=== PATIENT | female | born 1945 | race Caucasian/White ===

== ENCOUNTER 2019-09-22 01:53 | Inpatient (IN) | payer MEDICARE ==
[2019-09-22] VITALS (10 sets, daily range): BP systolic 88–135; BP diastolic 50–73
[~2019-09-22] VITALS: Ht 149.9 cm; Wt 69.1 kg
[~2019-09-22 01:53] MED LIST: ALBUTEROL2.5 MG/0.5 INH; ASPIR LOW81 MG PO; BENEFIBER1 CTB PO; CORDROL20 MG PO; DEEP SEA 45 ML45 ML NAS; DOXYCYCLINE HY100 M5 PO; DOXYCYCLINE100 MG PO; FLUTICASON0.05 MG/AC NAS; HYDROCHLOROTH12.5 M1 PO; HYDROCODONE BIT1 T11 PO; HYZAAR 50/12.5M1 TAB PO; LOSARTAN POTASS1 TA5 PO; MONTELUKAST SOD10 MG PO; MUCINEX ER600 MG PO; OMNICEF300 MG PO; OXYGEN NAS; PLAVIX75 M1 PO; PREDNICOT10 MG PO; PREDNISONE10 MG PO; PREDNISONE20 M1 PO; PROVENTIL0.09 MG/A1 INH; SINGULAIR10 MG PO; SPIRIVA18 MCG IH; SPIRIVA18 MCG PO; SYMBICORT1 AE1 INH; VIBRAMYCIN100 MG PO; XANAX0.25 MG PO; XANAX1 MG PO; ZOCOR10 MG PO
[2019-09-22 02:17] LABS: BASO # 0.1 10*3/uL (0.0-0.1); BASO % 0.4 % (0.0-1.0); EOS # 0.2 10*3/uL (0.0-0.4); EOS % 1.4 % (1.0-4.0); HEMATOCRIT 40.1 % (37.0-47.0); LYMPH # 1.1 10*3/uL (1.3-4.4); LYMPH % 8.4 % (27.0-41.0); MEAN CELL VOLUME 102.6 fl (81.0-99.0); MEAN CORPUSCULAR HGB 33.2 pg (27.0-31.0); MEAN CORPUSCULAR HGB CONC 32.4 g/dl (33.0-37.0); MEAN PLATELET VOLUME 9.2 fl (9.6-12.3); MONO # 0.6 10*3/uL (0.1-1.0); MONO % 4.7 % (3.0-9.0); NEUT # 11.1 10*3/uL (2.3-7.9); NEUT % 84.7 % (47.0-73.0); PLATELET COUNT AUTOMATED 281 10*3/uL (130-400); RED BLOOD COUNT 3.91 10*6/uL (4.10-5.10); RED CELL DISTRI WIDTH 12.4 % (0-14.5); WHITE BLOOD COUNT 13.1 10*3/uL (4.8-10.8)
[2019-09-22 02:27] LABS: ACT PARTIAL THROMBO TIME 27.6 SECONDS (20.0-32.1); INTERNATIONAL NORM RATIO 0.9 (2.0-3.5)
[2019-09-22 02:35] LABS: ALBUMIN 3.6 gm/dl (3.1-4.5); ALKALINE PHOSPHATASE 88 U/L (45-117); BUN 14 mg/dl (7-24); CHLORIDE 105 mmol/L (98-107); CREATININE 0.89 mg/dL (0.55-1.02); POTASSIUM 4.2 mmol/L (3.5-5.1); SGOT/AST 12 IU/L (3-35); SGPT/ALT 17 U/L (12-78); SODIUM 141 mmol/L (136-145); TOTAL PROTEIN 6.9 gm/dL (6.4-8.2)
[2019-09-22 02:37] LABS: TROPONIN I < 0.015 ng/ml (<0.045)
--- NOTE | 2019-09-22 03:35 | NUR ---
PT DENIES ANY OPEN WOUNDS OR SORES AT THIS TIME.
--- NOTE | 2019-09-22 04:20 | NUR ---
A 74, admitted to , under the services of JOHNNIE Archibald DO with a diagnosis of ACUTE EXACERBATION OF CHRONIC OBSTRUCTIVE. Chief complaint is SHORTNESS OF BREATH. Patient arrived via stretcher from ER. Monitor applied. Initial assessment completed. Vital signs taken and recorded. JOHNNIE ARCHIBALD DO notified of admission to the unit. Orders received. See assessment for past medical history, medications and allergies. Patient and/or family oriented to unit. [address] visitation policy reviewed. Clothing/patient valuable form completed. PULSE OX 95% ON 2L KEMAL MOBLEY
--- NOTE | 2019-09-22 05:12 | NUR ---
PATIENT NOT ABLE TO VERIFY HOME MEDS AT THIS TIME SHE IS NOT ABLE TO RECALL WHAT THEY ARE. PATIENT STATED HER IS GOING TO BRING HER MEDICATION LIST IN SOMETIME TODAY THEREFORE MED REC IS NOT COMPLETED AT THIS TIME.
--- NOTE | 2019-09-22 08:25 | NUR ---
IV BOLUS INITIATED AT THIS TIME PER ORDER.
[2019-09-22 08:57] LABS: HEMATOCRIT 37.8 % (37.0-47.0); HEMOGLOBIN 12.4 g/dl (12.0-16.0); MEAN CELL VOLUME 102.4 fl (81.0-99.0); MEAN CORPUSCULAR HGB 33.6 pg (27.0-31.0); MEAN CORPUSCULAR HGB CONC 32.8 g/dl (33.0-37.0); MEAN PLATELET VOLUME 9.3 fl (9.6-12.3); PLATELET COUNT AUTOMATED 270 10*3/uL (130-400); RED BLOOD COUNT 3.69 10*6/uL (4.10-5.10); RED CELL DISTRI WIDTH 12.3 % (0-14.5)
--- NOTE | 2019-09-22 09:03 | NUR ---
CHIEF EXECUTIVE OR MANAGING DIRECTOR spoke with the patient about DPOA/LW papers. Patient stated that she was given some from her doctors office. Patient stated that they confused her a little bit when she was reading them. CHIEF EXECUTIVE OR MANAGING DIRECTOR answered all questions the patient asked. CHIEF EXECUTIVE OR MANAGING DIRECTOR provided the patient with a new set of DPOA/HC papers, and explained if she had any additional question to have this CHIEF EXECUTIVE OR MANAGING DIRECTOR notified and CHIEF EXECUTIVE OR MANAGING DIRECTOR will assist her with answering them. Patient stated she would like to take the documents home and have them filled out there. CHIEF EXECUTIVE OR MANAGING DIRECTOR explained she could have a notary or two witnesses sign them. Patient understood. -Haylie ESPAÑA
[2019-09-22 09:13] LABS: ALBUMIN 3.4 gm/dl (3.1-4.5); ALKALINE PHOSPHATASE 85 U/L (45-117); BUN 13 mg/dl (7-24); CHLORIDE 105 mmol/L (98-107); CREATININE 0.97 mg/dL (0.55-1.02); POTASSIUM 4.1 mmol/L (3.5-5.1); SGOT/AST 15 IU/L (3-35); SGPT/ALT 15 U/L (12-78); SODIUM 141 mmol/L (136-145); TOTAL PROTEIN 6.7 gm/dL (6.4-8.2)
[2019-09-22 09:15] LABS: TOTAL CELLS COUNTED 100 #CELLS
[2019-09-22 09:16] LABS: PLATELET SUFFICIENCY NORMAL (NORMAL)
--- NOTE | 2019-09-22 09:49 | NUR ---
ORTHO'S PERFORMED PER ORDER. LAYING BP 101/64. HR 103. SITTING BP 99/57. HR 107. STANDING BP 103/59. HR 107. PT ASYMPTOMATIC. WILL CONTINUE TO MONITOR. IV BOLUS COMPLETE.
[2019-09-22] MEDS ORDERED: SYMB160 INH (12:15)
[2019-09-22] MEDS ORDERED: LOSARTAN-HCTZ1 EACH PO (12:16)
[2019-09-22] MEDS ORDERED: ZESTORETIC 20-1 EACH PO (12:17)
[2019-09-22] MEDS ORDERED: SPIRIVA -- 3018 MCG INH (12:17)
[2019-09-22] MEDS ORDERED: ASPIRIN ADULT L81 M2 PO (12:18)
[2019-09-22] MEDS ORDERED: FLONASE ALLERG9.9 ML NAS (12:22)
--- NOTE | 2019-09-22 12:23 | NUR ---
MED REC UPDATED PER POLICY.
--- NOTE | 2019-09-22 14:55 | NUR ---
FLUTTER VALVE DONE WITH PT NPC NOTED PT INSTRUCTED TO USE Q1 HOUR DURING DAY
--- NOTE | 2019-09-22 15:00 | NUR ---
PATIENT RESTING QUIETLY IN BED. NO DISTRESS NOTED. RESPIRATIONS EASY, REGULAR AT REST. FORBES PER PT. 02 IN USE VIA 2LNC. WILL CONTINUE TO MONITOR.
--- NOTE | 2019-09-22 16:16 | NUR ---
Nursing screen received and chart reviewed. Patient admitted with COPD and SOB. If patient should have a decline in ADLs from baseline, then refer to Occupational Therapy. Thank you. Estela Sosa OTR/l
[2019-09-23] VITALS: BP 121/66
--- NOTE | 2019-09-23 03:51 | NUR ---
24 HR chart check completed.
[2019-09-23 06:36] LABS: BASO % 0.1 % (0.0-1.0); HEMOGLOBIN 11.2 g/dl (12.0-16.0); LYMPH # 0.9 10*3/uL (1.3-4.4); LYMPH % 7.5 % (27.0-41.0); MEAN CELL VOLUME 105.4 fl (81.0-99.0); MEAN CORPUSCULAR HGB 33.7 pg (27.0-31.0); MEAN PLATELET VOLUME 9.4 fl (9.6-12.3); MONO # 0.7 10*3/uL (0.1-1.0); MONO % 5.7 % (3.0-9.0); NEUT # 10.1 10*3/uL (2.3-7.9); NEUT % 86.2 % (47.0-73.0); PLATELET COUNT AUTOMATED 260 10*3/uL (130-400); RED BLOOD COUNT 3.32 10*6/uL (4.10-5.10); RED CELL DISTRI WIDTH 12.5 % (0-14.5); WHITE BLOOD COUNT 11.8 10*3/uL (4.8-10.8)
[2019-09-23 06:43] LABS: BUN 18 mg/dl (7-24); CHLORIDE 108 mmol/L (98-107); POTASSIUM 4.7 mmol/L (3.5-5.1); SODIUM 139 mmol/L (136-145)
[2019-09-23 06:55] LABS: CHOLESTEROL 171 mg/dL (<200); CREATININE 0.91 mg/dL (0.55-1.02); FREE T4 0.89 ng/dl (0.76-1.46); HDL CHOLESTEROL 68 mg/dl (40-60); LDL CHOLESTEROL 91 mg/dL (9-159); PHOSPHOROUS 3.9 mg/dL (2.5-4.9); THYROID STIM HORMONE (HS) 0.262 uIU/ml (0.358-4.75); TRIGLYCERIDES 62 mg/dl (<150); VLDL CHOLESTEROL 12 mg/dL (6-40)
[2019-09-23 07:42] LABS: VITAMIN D, 25-HYDROXY 15.3 ng/mL (30-100)
[2019-09-23 08:00] VITALS: BP 119/58
--- NOTE | 2019-09-23 08:27 | NUR ---
CEFERINO BARRIGA IN TO SEE PATIENT REGARDING PLAN OF CARE.
--- NOTE | 2019-09-23 09:00 | NUR ---
[employer] in to talk to patient. Patient states lives at home with . There are few steps in the home. Physician: eric bucio Pharmacy: [facility] Home health services: none Patient's level of ADLs: INDEPENDENT Patient has working utilities: all working DME: home oxygen, portable tanks, nebulizer from [facility] Follow-up physician's appointment after d/c: will be made by hospitalist nurse director upon discharge Does patient want to access PORTAL?: no Discharge plan discussed with patient she lives at home with , she states she is independent in adls and ambulation, she has home oxygen, portable tanks and nebulizer from [facility], she states she will return home when medically stable and denies any home needs, case management will follow. SALMA WILEY
--- NOTE | 2019-09-23 11:50 | NUR ---
IV ZOFRAN GIVEN PER PRN ORDER FOR C/O NAUSEA. WILL MONITOR EFFECTIVENESS.
[2019-09-23 12:00] VITALS: BP 145/86
--- NOTE | 2019-09-23 12:01 | NUR ---
CEFERINO NOTIFIED REGARDING PATIENT C/O NAUSEA, SHAKINESS AND ANXIETY. NEW ORDERS RECEIVED.
--- NOTE | 2019-09-23 12:10 | NUR ---
ONE TIME DOSE OF XANAX GIVEN. WILL MONITOR EFFECTIVENESS.
--- NOTE | 2019-09-23 13:15 | NUR ---
XANAX EFFECTIVE PER PT. WILL CONTINUE TO MONITOR. NO VOICED COMPLAINTS.
[2019-09-23 16:00] VITALS: BP 108/60
[2019-09-23 20:00] VITALS: BP 117/70
--- NOTE | 2019-09-23 20:25 | NUR ---
PATIENT ALERT & ORIENTED RESTING IN BED WATCHING TV. PATIENT HAS NO COMPLAINTS AT THIS TIME. CALL LIGHT IN REACH. SEE ASESSMENT. WILL MONITOR.
--- NOTE | 2019-09-23 21:35 | NUR ---
PATIENT MEDICATED WITH PRN XANAX FOR ANXIETY. WILL MONITOR FOR EFFECTIVENESS.
--- NOTE | 2019-09-23 22:35 | NUR ---
PATIENT RESTING WITH EYES CLOSED. RESPIRATIONS EASY AND UNLABORED. CALL LIGHT IN REACH. WILL MONITOR.
[2019-09-24] VITALS: BP 110/62
--- NOTE | 2019-09-24 01:53 | NUR ---
24 HR chart check completed.
--- NOTE | 2019-09-24 06:24 | NUR ---
PATIENT MEDICATED WITH XANAX FOR ANXIETY. WILL MONITOR FOR EFFECTIVENESS.
[2019-09-24 08:00] VITALS: BP 118/64
--- NOTE | 2019-09-24 11:08 | NUR ---
PATIENT COMPLAINED OF LABORED BREATHING. PULSE OX 95% ON 3L NC. NOTIFIED DR LLAMAS THAT PATIENT WAS WHEEZING AND HAVING A HARD TIME BREATHING. PATIENT PRACTICING PURSED LIP BREATHING. DR LLAMAS STATED SHE WOULD LOOK AT HER ORDERS AND PUT SOMETHING IN IF POSSIBLE. NO OTHER ORDERS RECIEVED AT THIS TIME. WILL CONTINUE TO MONITOR THE PATIENT.
--- NOTE | 2019-09-24 11:18 | NUR ---
DR HOBBS NOTIFIED OF CONSULT.
[2019-09-24 12:00] VITALS: BP 104/63
--- NOTE | 2019-09-24 12:15 | NUR ---
PATIENT NOT FEELING ANY BETTER AFTER BREATHING TREATMENT. NOTIFIED DR LLAMAS. SHE STATED SHE WOULD BE UP TO ASSESS THE PATIENT.
--- NOTE | 2019-09-24 15:19 | NUR ---
PATIENT SITTING ON SIDE OF BED. SHE STATED SHE IS FEELING/BREATHING A LITTLE BETTER COMPARED TO HER STATUS EARLIER. PULSE OX 94% ON 3L NC. DR HOBBS IN TO SEE THE PATIENT. NO ADDITIONAL COMPLAINTS RIGHT NOW. CALL LIGHT WITHIN REACH. WILL CONTINUE TO MONITOR.
[2019-09-24 16:00] VITALS: BP 112/61
[2019-09-24 20:00] VITALS: BP 115/66
[2019-09-25] VITALS: BP 124/77
--- NOTE | 2019-09-25 03:43 | NUR ---
TYLENOL GIVEN FOR C/O HEADACHE. WILL MONITOR.
[2019-09-25 08:00] VITALS: BP 143/88
[2019-09-25 12:00] VITALS: BP 127/84
--- NOTE | 2019-09-25 12:35 | NUR ---
PATIENT MEDICATED WITH XANAX FOR ANXIETY. WILL MONITOR FOR EFFECTIVENESS.
--- NOTE | 2019-09-25 13:35 | NUR ---
PATIENT STATES THAT XANAX WAS EFFECTIVE FOR ANXIETY. WILL CONTINUE TO MONITOR.
[2019-09-25 14:00] VITALS: BP 120/71
--- NOTE | 2019-09-25 17:55 | NUR ---
DR MILLAN CALLED AND MADE AWARE THAT UNSUCESSFUL AT OBTAINING A NEW IV, EVEN WITH THE ULTRASOUND MACHINE.
--- NOTE | 2019-09-25 18:33 | NUR ---
PT GIVEN XANAX 0.25 MG TAB AT THIS TIME. DR PORTER AT BEDSIDE AND OKAYS PT TO HAVE DOSE OF MEDICATION EVEN THOUGH IT HAS BEEN 6 HOURS AND NOT THE ORDERED 8 HOUR FREQUENCY SINCE LAST DOSAGE. PHYSICIANS AND PT NURSE ARE AT BEDSIDE IN AN ATTEMPT TO OBTAIN IV ACCESS, PT IS HAVING INCREASED ANXIETY AT THIS TIME. PT NURSE WILL HAVE PM NURSE FOLLOW UP WITH EFFECTIVENESS OF MEDICATION.
--- NOTE | 2019-09-25 18:50 | NUR ---
DR HOBBS CALLED AND MADE AWARE THAT WE ARE UNABLE TO OBTAIN IV IN PATIENT. ORDER RECEIVED SEE EMAR.
[2019-09-25 20:00] VITALS: BP 118/66
--- NOTE | 2019-09-25 21:42 | NUR ---
UNABLE TO CHART IV ASSESSMENT- PT HAS NO IV ACCESS.
--- NOTE | 2019-09-25 23:02 | NUR ---
24 HR chart check completed.
[2019-09-26] VITALS: BP 128/64
--- NOTE | 2019-09-26 03:39 | NUR ---
PATIENT REQUESTED TO BE TAKEN OFF 3L OF OXYGEN TO SEE IF SHE COULD GO BACK DOWN TO HER 2L SHE NORMALLY WEARS. PATIENT WAS REDUCED DOWN TO 2L AND WAITED 20 MINUTES. PATIENTS PULSE OX AFTER BEING ON THE 2L FOR 20 MINUTES WAS 95%. ENCOAURGED PATIENT IF SHE BECOMES SHORT OF BREATH OR ANYTHING CHANGES TO LET THIS NURSE KNOW SO THAT WE CAN ADJUST IF WE NEED TO
[2019-09-26 06:02] LABS: BUN 18 mg/dl (7-24); CHLORIDE 107 mmol/L (98-107); POTASSIUM 4.6 mmol/L (3.5-5.1); SODIUM 141 mmol/L (136-145)
[2019-09-26 06:29] LABS: BASO % 0.3 % (0.0-1.0); EOS % 0.2 % (1.0-4.0); HEMATOCRIT 37.6 % (37.0-47.0); HEMOGLOBIN 11.9 g/dl (12.0-16.0); LYMPH # 0.6 10*3/uL (1.3-4.4); LYMPH % 8.5 % (27.0-41.0); MEAN CELL VOLUME 104.2 fl (81.0-99.0); MEAN CORPUSCULAR HGB CONC 31.6 g/dl (33.0-37.0); MEAN PLATELET VOLUME 9.5 fl (9.6-12.3); MONO # 0.3 10*3/uL (0.1-1.0); MONO % 3.9 % (3.0-9.0); NEUT # 5.5 10*3/uL (2.3-7.9); NEUT % 85.4 % (47.0-73.0); PLATELET COUNT AUTOMATED 266 10*3/uL (130-400); RED BLOOD COUNT 3.61 10*6/uL (4.10-5.10); RED CELL DISTRI WIDTH 12.4 % (0-14.5); WHITE BLOOD COUNT 6.4 10*3/uL (4.8-10.8)
[2019-09-26 08:00] VITALS: BP 132/82
[2019-09-26] MEDS ORDERED: SPIRIVA -- 3018 MCG INH (08:44)
[2019-09-26] MEDS ORDERED: ALPRAZOLAM0.25 M2 PO (08:45)
[2019-09-26] MEDS ORDERED: SYMB160 INH (08:46)
[2019-09-26] MEDS ORDERED: PROAIR HFA8.5 GM INH (08:48)
[2019-09-26] MEDS ORDERED: PREDNISONE10 MG PO (08:49)
[2019-09-26] MEDS ORDERED: ZITHROMAX500 MG PO (08:49)
--- NOTE | 2019-09-26 09:00 | NUR ---
case management visits with patient, she states she is being discharged to home today and denies any home needs,
[2019-09-26] MEDS ORDERED: NICODERM T (09:03)
--- NOTE | 2019-09-26 10:53 | NUR ---
PT DISCHARGED AT THIS TIME. VERBALIZED UNDERSTANDING OF DISCHARGE INSTRUCTIONS.
== END 2019-09-26 10:53 | disposition home or self-care (01) | DRG 871 ==
LOC: ED 01:53 → 4E 03:34 → EDHOLD 03:34 → 4E 04:04 → 5E 09-25 18:15
PROVIDERS: Emergency Medicine Emergency Medical Services; Internal Medicine; Registered Nurse; ADMIT Internal Medicine
DX: A41.9 Sepsis, unspecified organism (principal); J96.22 Acute and chronic respiratory failure with hypercapnia; J96.21 Acute and chronic respiratory failure with hypoxia; J44.1 Chronic obstructive pulmonary disease with (acute) exacerbation; E44.0 Moderate protein-calorie malnutrition; J44.0 Chronic obstructive pulmonary disease with (acute) lower respiratory infection; I10 Essential (primary) hypertension; J20.9 Acute bronchitis, unspecified; I25.10 Atherosclerotic heart disease of native coronary artery without angina pectoris; K21.9 Gastro-esophageal reflux disease without esophagitis; E78.00 Pure hypercholesterolemia, unspecified; I71.4 Abdominal aortic aneurysm, without rupture; I95.89 Other hypotension; T50.995A Adverse effect of other drugs, medicaments and biological substances, initial encounter; D75.89 Other specified diseases of blood and blood-forming organs; Z87.891 Personal history of nicotine dependence; Y92.89 Other specified places as the place of occurrence of the external cause; Z99.81 Dependence on supplemental oxygen; Z68.30 Body mass index [BMI] 30.0-30.9, adult; Z88.6 Allergy status to analgesic agent; Z88.1 Allergy status to other antibiotic agents; Z88.5 Allergy status to narcotic agent; Z88.8 Allergy status to other drugs, medicaments and biological substances; Z79.899 Other long term (current) drug therapy; Z90.49 Acquired absence of other specified parts of digestive tract; Z90.710 Acquired absence of both cervix and uterus; Z85.118 Personal history of other malignant neoplasm of bronchus and lung; Z82.49 Family history of ischemic heart disease and other diseases of the circulatory system; Z79.82 Long term (current) use of aspirin; E66.9 Obesity, unspecified

== ENCOUNTER 2019-09-26 19:47 | Inpatient (IN) | payer MEDICARE ==
[~2019-09-26] VITALS: Ht 149.9 cm; Wt 65.3 kg
[~2019-09-26 19:47] MED LIST changes: +ALPRAZOLAM0.25 M2 PO; +ASPIRIN ADULT L81 M2 PO; +FLONASE ALLERG9.9 ML NAS; +LOSARTAN-HCTZ1 EACH PO; +NICODERM T; +PROAIR HFA8.5 GM INH; +SPIRIVA -- 3018 MCG INH; +SYMB160 INH; +ZESTORETIC 20-1 EACH PO; +ZITHROMAX500 MG PO
[2019-09-26 20:23] LABS: BASO % 0.3 % (0.0-1.0); EOS % 0.3 % (1.0-4.0); HEMATOCRIT 40.2 % (37.0-47.0); HEMOGLOBIN 12.7 g/dl (12.0-16.0); LYMPH # 0.9 10*3/uL (1.3-4.4); LYMPH % 10.7 % (27.0-41.0); MEAN CELL VOLUME 105.2 fl (81.0-99.0); MEAN CORPUSCULAR HGB 33.2 pg (27.0-31.0); MEAN CORPUSCULAR HGB CONC 31.6 g/dl (33.0-37.0); MEAN PLATELET VOLUME 9.3 fl (9.6-12.3); MONO # 0.7 10*3/uL (0.1-1.0); MONO % 8.2 % (3.0-9.0); NEUT # 6.8 10*3/uL (2.3-7.9); NEUT % 78.7 % (47.0-73.0); PLATELET COUNT AUTOMATED 317 10*3/uL (130-400); RED BLOOD COUNT 3.82 10*6/uL (4.10-5.10); RED CELL DISTRI WIDTH 12.6 % (0-14.5); WHITE BLOOD COUNT 8.7 10*3/uL (4.8-10.8)
[2019-09-26 20:34] LABS: ACT PARTIAL THROMBO TIME 25.4 SECONDS (20.0-32.1); INTERNATIONAL NORM RATIO 0.9 (2.0-3.5)
[2019-09-26 20:42] LABS: ALBUMIN 3.7 gm/dl (3.1-4.5); ALKALINE PHOSPHATASE 75 U/L (45-117); BUN 24 mg/dl (7-24); CHLORIDE 106 mmol/L (98-107); CREATININE 1.03 mg/dL (0.55-1.02); POTASSIUM 4.8 mmol/L (3.5-5.1); SGOT/AST 15 IU/L (3-35); SGPT/ALT 20 U/L (12-78); SODIUM 141 mmol/L (136-145); TOTAL PROTEIN 6.4 gm/dL (6.4-8.2)
[2019-09-26 20:43] LABS: TROPONIN I < 0.015 ng/ml (<0.045)
--- NOTE | 2019-09-26 20:43 | NUR ---
LAB CALLED WITH [facility] OF 2.7. DR. HILL NOTIFIED.
[2019-09-26 22:45] VITALS: BP 126/72
[2019-09-27 03:10] VITALS: BP 126/74
--- NOTE | 2019-09-27 03:10 | NUR ---
A 74, admitted to 5E, under the services of LU Sena DO with a diagnosis of SOB, COPD EXACERBATION. Chief complaint is SOB. Patient arrived via stretcher from ER. Monitor applied. Initial assessment completed. Vital signs taken and recorded. LU SENA DO notified of admission to the unit. Orders received. See assessment for past medical history, medications and allergies. Patient and/or family oriented to unit. [address] visitation policy reviewed. Clothing/patient valuable form completed. KEMAL AARON
--- NOTE | 2019-09-27 03:38 | NUR ---
NOTIFIED DR MCKNIGHT OF COMPLETED MED REC.
--- NOTE | 2019-09-27 06:40 | NUR ---
NOTIFIED DR HOBBS OF CONSULT.
[2019-09-27 06:44] LABS: BASO % 0.4 % (0.0-1.0); EOS % 0.4 % (1.0-4.0); HEMATOCRIT 36.9 % (37.0-47.0); HEMOGLOBIN 11.8 g/dl (12.0-16.0); LYMPH # 0.7 10*3/uL (1.3-4.4); LYMPH % 13.9 % (27.0-41.0); MEAN CELL VOLUME 103.7 fl (81.0-99.0); MEAN CORPUSCULAR HGB 33.1 pg (27.0-31.0); MEAN PLATELET VOLUME 9.3 fl (9.6-12.3); MONO # 0.2 10*3/uL (0.1-1.0); MONO % 3.4 % (3.0-9.0); NEUT % 80.5 % (47.0-73.0); PLATELET COUNT AUTOMATED 243 10*3/uL (130-400); RED BLOOD COUNT 3.56 10*6/uL (4.10-5.10); RED CELL DISTRI WIDTH 12.6 % (0-14.5)
[2019-09-27 07:11] LABS: BUN 24 mg/dl (7-24); CHLORIDE 107 mmol/L (98-107); CREATININE 0.79 mg/dL (0.55-1.02); PHOSPHOROUS 3.2 mg/dL (2.5-4.9); POTASSIUM 4.5 mmol/L (3.5-5.1); SODIUM 141 mmol/L (136-145)
[2019-09-27 08:00] VITALS: BP 122/67
[2019-09-27 12:00] VITALS: BP 128/73
--- NOTE | 2019-09-27 14:00 | NUR ---
PHYSICAL THERAPY PT EVAL COMPLETED TODAY: FULL EVAL TO FOLLOW. RECOMMEND PT WHILE HERE TO ADDRESS DECREASED STRENGTH AND ENDURANCE WELL FUNCTIONAL MOBILITY INCLUDING GAIT. D/C REC: ARE HOME WITH HOME HEALTH AND SUPPORT BASED ON EVAL TODAY. PT EVAL IS MODERATE COMPLEXITY; [id number]. THANK YOU FOR REFERRAL ABDEIL LYNCH PT
[2019-09-27 16:00] VITALS: BP 132/60
[2019-09-27 20:00] VITALS: BP 124/75
[2019-09-28] VITALS: BP 115/71
[2019-09-28 08:00] VITALS: BP 135/77
--- NOTE | 2019-09-28 08:53 | NUR ---
PT SITTING UP. VOICES NO CONCERNS AT THIS TIME. OXYGEN 2 L VIA NASAL CANNULA INTACT. NO S/S OF DISTRESS NOTED. RESPS EASY AND NON LABORED. CALL LIGHT WITHIN REACH.
--- NOTE | 2019-09-28 10:46 | NUR ---
Shift chart check completed.
[2019-09-28 12:00] VITALS: BP 142/75
--- NOTE | 2019-09-28 12:58 | NUR ---
PT RESTING IN BED. VOICES NO CONCERNS AT THIS TIME. OXYGEN 2L VIA NASAL CANNULA INTACT. RESPS EASY AND NON LABORED. CALL LIGHT WITHIN REACH.
--- NOTE | 2019-09-28 14:13 | NUR ---
DR HOBBS IN TO SEE PATIENT
--- NOTE | 2019-09-28 15:00 | NUR ---
PT AND FAMILY UPDATED ON PLAN OF CARE PER PT REQUEST. QUESTIONS ANSWERED. VOICES NO OTHER CONCERNS AT THIS TIME. CALL LIGHT WITHIN REACH
[2019-09-28 16:00] VITALS: BP 134/87
[2019-09-28 20:00] VITALS: BP 117/60
--- NOTE | 2019-09-28 20:30 | NUR ---
PATIENT IS RESTING IN BED WITH EASY AND REGULAR RESPERS ON 2L VIA NC. ASSESSMENT IS COMPLETE WITH NO C/O OR S/S OF DISTRESS NOTED AT THIS TIME. BED IS LOW, LOCKED, AND CALL LIGHT IS WITHIN REACH. WILL CONTINUE TO MONITOR, SEE SHIFT ASSESSMENT.
[2019-09-29] VITALS: BP 106/68
--- NOTE | 2019-09-29 00:35 | NUR ---
PRN XANAX GIVEN AT THIS TIME FOR C/O ANXIETY/INSOMNIA. CALL LIGHT IS WITHIN REACH, WILL MONITOR EFFECT.
--- NOTE | 2019-09-29 02:00 | NUR ---
PRN XANAX APPEARS EFFECTIVE, PATIENT IS SLEEPING WITH EASY AND REGULAR RESPERS ON 2L VIA NC. CALL LIGHT IS WITHIN REACH.
--- NOTE | 2019-09-29 06:45 | NUR ---
CHART CHECK COMPLETE.
--- NOTE | 2019-09-29 07:30 | NUR ---
PT UP TO CHAIR. VOICES NO CONCERNS AT THIS TIME. RESPS EASY AND NON LABORED. NO S/S OF DISTRESS NOTED. OXYGEN 2L VIA NASAL CANNULA INTACT. CALL LIGHT WITHIN REACH. WHITE BOARD UPDATED.
[2019-09-29 08:00] VITALS: BP 129/64
--- NOTE | 2019-09-29 08:14 | NUR ---
PHYSICAL THERAPY TREATMENT TIME: 07:45 AM - 08:00 AM Patient presented to therapy in sitting in low chair at foot of bed with 3 liters of spO2 VIA NASAL CANULA. Patient was identified by name and on wristband. Patient gives informed consent for treatment. Patient'S initial O2 sat WAS RECORED 98%and pulse at 82. Patient performed sit to stand transfer with SBA. Patient declined use of Wh Walker saying she doesn't use one at home. Patient performed ambulation with CLose Supervision for 138' x 1 with no assistive device and no LOB or significant SOB noted. Patient's O2 SAT WAS RECORED as 95% and pulse at 110 at 69' distance. Patient's O2 SAT was recorded as 99% and pulse 93 after 1 minute rest at end of 138' x 1 distance. Patient was left in low chair at foot of bed with 3 liters of spO2 RECONNECTED TO WALL OUTLET AND CALL LIGHT within reach. Patient was 1:1 with this CLINICAL ACADEMIC ALLERGIST for 15 minutes total. AMBERLY SCHREIBER CLINICAL ACADEMIC ALLERGIST
--- NOTE | 2019-09-29 08:20 | NUR ---
Nursing screen received and Occupational Therapy received. Thank you. Estela Sosa OTR/l
--- NOTE | 2019-09-29 08:44 | NUR ---
Shift chart check completed.
--- NOTE | 2019-09-29 11:08 | NUR ---
Costumer in to talk to patient. Patient states lives at with her . There are few steps in the home. Physician: [facility]: [facility] Home health services: None Patient's level of ADLs: INDEPENDENT Patient has working utilities: Yes DME: Home Oxygen, Portable tanks, nebulizer from [facility] [place] Follow-up physician's appointment after d/c: will be made by Hospitalist nurs Director upon discharge. Does patient want to access PORTAL?: no Discharge plan discussed with the patient. Patient lives at home with her . Patient states she is independent with ADLs/IADLs and ambulation. Patient states she has no home needs at this time and will return home when medically stable. Patient will have a ride upon discharge. MAIA INMAN
--- NOTE | 2019-09-29 11:30 | NUR ---
Occupational Therapy evaluation completed on 5 with full eval to follow. Precautions include new continuous O2 use,impaired activity tolerance,IV UE, low complexity level 08560. Recommend OT per pOC and home w/ home health SN, OT,PT. Thank you. Estela Sosa Otr/l
[2019-09-29 12:00] VITALS: BP 125/69
--- NOTE | 2019-09-29 13:16 | NUR ---
PHYSICAL THERAPY TREATMENT TIME: 12:30 PM - 1:45 PM Patient presented to therapy in sitting position in bedside chair and report of feeling pretty good this afternoon. Patient gives informed consent for treatment. Patient was identified by name jani RAI on wristband. Patient sit to stand transfer with SBA. Patient performed ambulation with no assistive device and Close Supervision for 220' x 1 with 2 liters of spO2 VIA NASAL CANULA. Patient was left in bedside chair with call light within reach and tray table within reach. Patient 02 connected to wall outlet with 2 liters of 02. Patient was 1:1 with this PHARMACY CLINICAL SPECIALIST for 15 minutes total. AMBERLY SCHREIBER PHARMACY CLINICAL SPECIALIST
[2019-09-29 16:00] VITALS: BP 123/84
[2019-09-29 20:00] VITALS: BP 110/58
--- NOTE | 2019-09-29 22:15 | NUR ---
MEDICATED WITH ZOFRAN AND XANAX PER PRN ORDERS FOR C/O NAUSEA AND INSOMNIA.
--- NOTE | 2019-09-29 23:37 | NUR ---
IV ROCEPHIN INITIATED PER ORDER. PT DENIES ANY NEEDS. WILL MONITOR.
[2019-09-30] VITALS: BP 116/71
--- NOTE | 2019-09-30 00:12 | NUR ---
IV ROCEPHIN INFUSION COMPLETE. PT DENIES ANY NEEDS. WILL MONITOR. O2 IN USE VIA 2L NC. CALL LIGHT IN REACH.
--- NOTE | 2019-09-30 02:15 | NUR ---
PT ASLEEP IN BED. RESPIRATIONS EASY. NO S/S OF DISTRESS NOTED. WILL MONITOR. CALL LIGHT IN REACH.
--- NOTE | 2019-09-30 04:23 | NUR ---
PT ASLEEP IN BED. RESPIRATIONS EASY. NO S/S OF DISTRESS NOTED. WILL MONITOR. CALL LIGHT IN REACH.
[2019-09-30 06:37] LABS: MEAN CELL VOLUME 102.6 fl (81.0-99.0); MEAN CORPUSCULAR HGB 33.3 pg (27.0-31.0); MEAN CORPUSCULAR HGB CONC 32.5 g/dl (33.0-37.0); MEAN PLATELET VOLUME 9.6 fl (9.6-12.3); PLATELET COUNT AUTOMATED 258 10*3/uL (130-400); WHITE BLOOD COUNT 7.8 10*3/uL (4.8-10.8)
[2019-09-30 06:58] LABS: CREATININE 0.92 mg/dL (0.55-1.02)
[2019-09-30 07:28] LABS: PLATELET SUFFICIENCY NORMAL (NORMAL); TOTAL CELLS COUNTED 100 #CELLS
[2019-09-30 08:00] VITALS: BP 116/58
--- NOTE | 2019-09-30 11:22 | NUR ---
Received call from nursing police shift commander stating patient told her she wants to have [facility] when discharged.
--- NOTE | 2019-09-30 11:46 | NUR ---
HOME HEALTH ORDERS, FACE SHEET AND FACE TO FACE FAXED TO [facility]
[2019-09-30 12:00] VITALS: BP 92/72
[2019-09-30] MEDS ORDERED: DOXYCYCLINE100 M3 PO (12:33)
[2019-09-30] MEDS ORDERED: PREDNISONE10 MG PO (12:33)
--- NOTE | 2019-09-30 14:41 | NUR ---
Discharge instructions reviewed with patient/family. Patient receptive and verbalizes understanding. Follow-up care arranged. Written instructions given to patient/family. Patient was educated on follow up visits and medication changes. Patient was wheeled from unit by staff member with all personal belongings accounted for. JAMIA RICHMOND
--- NOTE | 2019-10-02 07:49 | NUR ---
PHYSICAL THERAPY CO-SIGN I approve of the Physical Therapy notes written above. Ana Lilia Mitchell PT
== END 2019-09-30 14:41 | disposition home or self-care (01) | DRG 871 ==
LOC: ED 19:47 → EDHOLD 22:29 → 5E 22:29
PROVIDERS: Emergency Medicine; Internal Medicine; ADMIT Emergency Medicine
DX: A41.9 Sepsis, unspecified organism (principal); J18.9 Pneumonia, unspecified organism; J96.21 Acute and chronic respiratory failure with hypoxia; J44.1 Chronic obstructive pulmonary disease with (acute) exacerbation; J44.0 Chronic obstructive pulmonary disease with (acute) lower respiratory infection; I10 Essential (primary) hypertension; K21.9 Gastro-esophageal reflux disease without esophagitis; I25.10 Atherosclerotic heart disease of native coronary artery without angina pectoris; F41.9 Anxiety disorder, unspecified; R73.9 Hyperglycemia, unspecified; Z51.5 Encounter for palliative care; Z66 Do not resuscitate; F17.210 Nicotine dependence, cigarettes, uncomplicated; R91.1 Solitary pulmonary nodule; E66.9 Obesity, unspecified; E83.41 Hypermagnesemia; M62.81 Muscle weakness (generalized); Z68.30 Body mass index [BMI] 30.0-30.9, adult; Z99.81 Dependence on supplemental oxygen; Z88.6 Allergy status to analgesic agent; Z88.1 Allergy status to other antibiotic agents; Z88.5 Allergy status to narcotic agent; Z88.8 Allergy status to other drugs, medicaments and biological substances; Z79.82 Long term (current) use of aspirin; Z79.899 Other long term (current) drug therapy; Z90.49 Acquired absence of other specified parts of digestive tract; Z90.710 Acquired absence of both cervix and uterus; Z82.49 Family history of ischemic heart disease and other diseases of the circulatory system; Z85.118 Personal history of other malignant neoplasm of bronchus and lung

== ENCOUNTER → 2019-10-29 | Outpatient (CLI) | payer MEDICARE ==
[~2019-10-29] MED LIST changes: +DOXYCYCLINE100 M3 PO
[2019-10-29 12:42] LABS: BASO % 0.5 % (0.0-1.0); EOS # 0.2 10*3/uL (0.0-0.4); EOS % 2.7 % (1.0-4.0); HEMATOCRIT 38.3 % (37.0-47.0); HEMOGLOBIN 12.2 g/dl (12.0-16.0); LYMPH % 22.9 % (27.0-41.0); MEAN CELL VOLUME 105.5 fl (81.0-99.0); MEAN CORPUSCULAR HGB 33.6 pg (27.0-31.0); MEAN CORPUSCULAR HGB CONC 31.9 g/dl (33.0-37.0); MEAN PLATELET VOLUME 9.4 fl (9.6-12.3); MONO # 0.7 10*3/uL (0.1-1.0); MONO % 8.1 % (3.0-9.0); NEUT # 5.5 10*3/uL (2.3-7.9); NEUT % 65.2 % (47.0-73.0); PLATELET COUNT AUTOMATED 289 10*3/uL (130-400); RED BLOOD COUNT 3.63 10*6/uL (4.10-5.10); RED CELL DISTRI WIDTH 12.7 % (0-14.5); WHITE BLOOD COUNT 8.5 10*3/uL (4.8-10.8)
== END | disposition home or self-care (01) ==
LOC: LAB 12:10
PROVIDERS: Internal Medicine Critical Care Medicine
DX: Z79.899 Other long term (current) drug therapy (principal)

== ENCOUNTER → 2020-02-10 | Outpatient (CLI) | payer MEDICARE | END | disposition home or self-care (01) | LOC: CT 11:00 | DX: R91.1 Solitary pulmonary nodule (principal); I25.10 Atherosclerotic heart disease of native coronary artery without angina pectoris ==

== ENCOUNTER → 2020-08-16 | Outpatient (CLI) | payer MEDICARE | END | disposition home or self-care (01) | LOC: CT 10:00 | PROVIDERS: ATTEND Internal Medicine Critical Care Medicine | DX: R91.1 Solitary pulmonary nodule (principal) ==

== ENCOUNTER 2020-10-21 09:55 | Emergency (ER) | payer MEDICARE ==
[~2020-10-21] VITALS: Wt 68.0 kg
[2020-10-21 10:30] LABS: BASO % 0.2 % (0.0-1.0); HEMATOCRIT 36.6 % (37.0-47.0); LYMPH # 1.4 10*3/uL (1.3-4.4); LYMPH % 22.2 % (27.0-41.0); MEAN CELL VOLUME 98.1 fl (81.0-99.0); MEAN CORPUSCULAR HGB 31.6 pg (27.0-31.0); MEAN CORPUSCULAR HGB CONC 32.2 g/dl (33.0-37.0); MEAN PLATELET VOLUME 9.3 fl (9.6-12.3); MONO # 0.5 10*3/uL (0.1-1.0); MONO % 7.4 % (3.0-9.0); NEUT # 4.3 10*3/uL (2.3-7.9); PLATELET COUNT AUTOMATED 260 10*3/uL (130-400); RED BLOOD COUNT 3.73 10*6/uL (4.10-5.10); RED CELL DISTRI WIDTH 12.5 % (0-14.5); WHITE BLOOD COUNT 6.1 10*3/uL (4.8-10.8)
[2020-10-21 10:45] LABS: ALBUMIN 3.6 gm/dl (3.1-4.5); ALKALINE PHOSPHATASE 95 U/L (45-117); BUN 15 mg/dl (7-24); CHLORIDE 103 mmol/L (98-107); CREATININE 0.79 mg/dL (0.55-1.02); POTASSIUM 3.8 mmol/L (3.5-5.1); SGOT/AST 11 IU/L (3-35); SGPT/ALT 13 U/L (12-78); SODIUM 138 mmol/L (136-145); TOTAL PROTEIN 7.3 gm/dL (6.4-8.2)
[2020-10-21 10:46] LABS: TROPONIN I < 0.015 ng/ml (<0.045)
[2020-10-21 13:18] VITALS: BP 108/31
[2020-10-21] MEDS ORDERED: PREDNISONE50 MG PO (13:41)
== END 2020-10-21 13:32 | disposition home or self-care (01) ==
LOC: ED 09:55
PROVIDERS: Emergency Medicine
DX: J44.1 Chronic obstructive pulmonary disease with (acute) exacerbation (principal); Z20.828 Contact with and (suspected) exposure to other viral communicable diseases; F17.200 Nicotine dependence, unspecified, uncomplicated; Z88.6 Allergy status to analgesic agent; Z88.1 Allergy status to other antibiotic agents; Z79.899 Other long term (current) drug therapy; Z79.82 Long term (current) use of aspirin

== ENCOUNTER 2021-05-31 13:51 | Inpatient (IN) | payer MEDICARE ==
[~2021-05-31] VITALS: Ht 147.3 cm; Wt 69.9 kg
[~2021-05-31 13:51] MED LIST changes: +PREDNISONE50 MG PO
[2021-05-31 14:05] VITALS: BP 120/60
[2021-05-31 14:12] LABS: BASO % 0.1 % (0.0-1.0); HEMATOCRIT 36.3 % (37.0-47.0); LYMPH # 1.5 10*3/uL (1.3-4.4); LYMPH % 22.9 % (27.0-41.0); MEAN CELL VOLUME 98.9 fl (81.0-99.0); MEAN CORPUSCULAR HGB 32.7 pg (27.0-31.0); MEAN CORPUSCULAR HGB CONC 33.1 g/dl (33.0-37.0); MEAN PLATELET VOLUME 9.5 fl (9.6-12.3); MONO # 0.5 10*3/uL (0.1-1.0); MONO % 7.3 % (3.0-9.0); NEUT # 4.6 10*3/uL (2.3-7.9); NEUT % 68.5 % (47.0-73.0); PLATELET COUNT AUTOMATED 232 10*3/uL (130-400); RED BLOOD COUNT 3.67 10*6/uL (4.10-5.10); WHITE BLOOD COUNT 6.7 10*3/uL (4.8-10.8)
[2021-05-31 14:26] LABS: ALBUMIN 3.7 gm/dl (3.1-4.5); ALKALINE PHOSPHATASE 82 U/L (45-117); BUN 20 mg/dl (7-24); CHLORIDE 99 mmol/L (98-107); CREATININE 1.12 mg/dL (0.55-1.02); POTASSIUM 4.2 mmol/L (3.5-5.1); SGOT/AST 14 IU/L (3-35); SGPT/ALT 15 U/L (12-78); SODIUM 134 mmol/L (136-145); TOTAL PROTEIN 7.1 gm/dL (6.4-8.2)
[2021-05-31 14:29] LABS: TROPONIN I < 0.015 ng/ml (<0.045)
[2021-05-31 15:09] VITALS: BP 128/76
[2021-05-31 16:17] VITALS: BP 118/71
[2021-05-31 22:45] VITALS: BP 136/69
[2021-05-31] MEDS ORDERED: SPIRIVA18 MCG PO (23:03)
[2021-05-31] MEDS ORDERED: ALBUTEROL2.5 MG/0.5 INH (23:04)
[2021-06-01 06:26] LABS: HEMATOCRIT 34.4 % (37.0-47.0); MEAN CORPUSCULAR HGB 32.3 pg (27.0-31.0); MEAN CORPUSCULAR HGB CONC 32.3 g/dl (33.0-37.0); MEAN PLATELET VOLUME 9.3 fl (9.6-12.3); PLATELET COUNT AUTOMATED 192 10*3/uL (130-400); RED BLOOD COUNT 3.44 10*6/uL (4.10-5.10); RED CELL DISTRI WIDTH 11.9 % (0-14.5); WHITE BLOOD COUNT 5.2 10*3/uL (4.8-10.8)
[2021-06-01 06:43] LABS: ALBUMIN 3.2 gm/dl (3.1-4.5); BUN 24 mg/dl (7-24); CHLORIDE 104 mmol/L (98-107); CREATININE 1.01 mg/dL (0.55-1.02); POTASSIUM 4.5 mmol/L (3.5-5.1); SGOT/AST 13 IU/L (3-35); SGPT/ALT 14 U/L (12-78); SODIUM 138 mmol/L (136-145)
[2021-06-01 06:46] LABS: ALKALINE PHOSPHATASE 74 U/L (45-117); CHOLESTEROL 180 mg/dL (<200); LDL CHOLESTEROL 105 mg/dL (9-159); TOTAL PROTEIN 6.6 gm/dL (6.4-8.2); TRIGLYCERIDES 47 mg/dl (<150)
[2021-06-01 07:26] LABS: BASOPHILS 1 % (0-1); TOTAL CELLS COUNTED 100 #CELLS
[2021-06-01 07:27] LABS: PLATELET SUFFICIENCY NORMAL (NORMAL)
[2021-06-01 08:00] VITALS: BP 110/70
[2021-06-01 12:00] VITALS: BP 136/76
[2021-06-01 16:00] VITALS: BP 136/76
[2021-06-01 20:00] VITALS: BP 132/77
[2021-06-02] VITALS: BP 106/59
[2021-06-02 06:28] LABS: BASO % 0.3 % (0.0-1.0); HEMATOCRIT 34.8 % (37.0-47.0); LYMPH # 0.5 10*3/uL (1.3-4.4); MEAN CELL VOLUME 102.7 fl (81.0-99.0); MEAN CORPUSCULAR HGB 32.4 pg (27.0-31.0); MEAN CORPUSCULAR HGB CONC 31.6 g/dl (33.0-37.0); MEAN PLATELET VOLUME 9.6 fl (9.6-12.3); MONO # 0.2 10*3/uL (0.1-1.0); MONO % 2.9 % (3.0-9.0); NEUT # 6.7 10*3/uL (2.3-7.9); NEUT % 89.4 % (47.0-73.0); PLATELET COUNT AUTOMATED 192 10*3/uL (130-400); RED BLOOD COUNT 3.39 10*6/uL (4.10-5.10); RED CELL DISTRI WIDTH 12.3 % (0-14.5); WHITE BLOOD COUNT 7.5 10*3/uL (4.8-10.8)
[2021-06-02 07:00] LABS: BUN 26 mg/dl (7-24); CHLORIDE 103 mmol/L (98-107); CREATININE 0.91 mg/dL (0.55-1.02); POTASSIUM 4.8 mmol/L (3.5-5.1); SODIUM 137 mmol/L (136-145)
[2021-06-02 08:00] VITALS: BP 120/60
[2021-06-02 12:00] VITALS: BP 134/70
[2021-06-02 16:00] VITALS: BP 127/56
[2021-06-02 20:00] VITALS: BP 127/67
[2021-06-03] VITALS: BP 110/68
[2021-06-03 04:04] VITALS: BP 118/80
[2021-06-03 08:00] VITALS: BP 109/57; BP 119/72
[2021-06-03 12:00] VITALS: BP 125/62
[2021-06-03 16:00] VITALS: BP 115/71
[2021-06-03 20:00] VITALS: BP 143/76
[2021-06-04] VITALS: BP 145/82
[2021-06-04 08:00] VITALS: BP 134/79
[2021-06-04 12:00] VITALS: BP 113/74
[2021-06-04 16:00] VITALS: BP 137/79
[2021-06-04 20:00] VITALS: BP 121/74
[2021-06-05] VITALS: BP 119/57
[2021-06-05 06:29] LABS: BASO % 0.1 % (0.0-1.0); HEMATOCRIT 37.7 % (37.0-47.0); LYMPH # 0.9 10*3/uL (1.3-4.4); LYMPH % 11.7 % (27.0-41.0); MEAN CELL VOLUME 101.9 fl (81.0-99.0); MEAN CORPUSCULAR HGB 32.2 pg (27.0-31.0); MEAN CORPUSCULAR HGB CONC 31.6 g/dl (33.0-37.0); MEAN PLATELET VOLUME 9.5 fl (9.6-12.3); MONO # 0.5 10*3/uL (0.1-1.0); MONO % 6.8 % (3.0-9.0); NEUT # 5.8 10*3/uL (2.3-7.9); NEUT % 80.6 % (47.0-73.0); PLATELET COUNT AUTOMATED 232 10*3/uL (130-400); RED CELL DISTRI WIDTH 12.3 % (0-14.5); WHITE BLOOD COUNT 7.3 10*3/uL (4.8-10.8)
[2021-06-05 06:53] LABS: BUN 29 mg/dl (7-24); CHLORIDE 100 mmol/L (98-107); CREATININE 0.98 mg/dL (0.55-1.02); POTASSIUM 4.2 mmol/L (3.5-5.1); SODIUM 139 mmol/L (136-145)
[2021-06-05 08:00] VITALS: BP 147/80
[2021-06-05 12:00] VITALS: BP 111/58
[2021-06-05 16:00] VITALS: BP 94/62
[2021-06-05 20:00] VITALS: BP 109/87
[2021-06-06] VITALS: BP 121/68
[2021-06-06 08:00] VITALS: BP 146/82
[2021-06-06] MEDS ORDERED: MUCUS RELIEF600 MG PO (11:27)
[2021-06-06] MEDS ORDERED: PREDNISONE10 MG PO (11:27)
== END 2021-06-06 13:08 | disposition home or self-care (01) | DRG 177 ==
LOC: ED 13:51 → 4E 16:02 → EDHOLD 16:02 → 4E 20:17
PROVIDERS: Family Medicine; Internal Medicine; Student in an Organized Health Care Education/Training Program; ADMIT Internal Medicine; ATTEND Internal Medicine
DX: J15.6 Pneumonia due to other Gram-negative bacteria (principal); N17.0 Acute kidney failure with tubular necrosis; J96.21 Acute and chronic respiratory failure with hypoxia; J96.22 Acute and chronic respiratory failure with hypercapnia; J44.1 Chronic obstructive pulmonary disease with (acute) exacerbation; J44.0 Chronic obstructive pulmonary disease with (acute) lower respiratory infection; E87.1 Hypo-osmolality and hyponatremia; E87.3 Alkalosis; Z66 Do not resuscitate; Z51.5 Encounter for palliative care; K21.9 Gastro-esophageal reflux disease without esophagitis; I25.10 Atherosclerotic heart disease of native coronary artery without angina pectoris; R73.9 Hyperglycemia, unspecified; E83.41 Hypermagnesemia; I10 Essential (primary) hypertension; E78.00 Pure hypercholesterolemia, unspecified; E66.9 Obesity, unspecified; F17.210 Nicotine dependence, cigarettes, uncomplicated; J45.909 Unspecified asthma, uncomplicated; F41.9 Anxiety disorder, unspecified; D53.9 Nutritional anemia, unspecified; Z99.81 Dependence on supplemental oxygen; Z85.118 Personal history of other malignant neoplasm of bronchus and lung; Z68.32 Body mass index [BMI] 32.0-32.9, adult; Z88.1 Allergy status to other antibiotic agents; Z91.041 Radiographic dye allergy status; Z88.6 Allergy status to analgesic agent; Z88.5 Allergy status to narcotic agent; Z88.8 Allergy status to other drugs, medicaments and biological substances; Z82.49 Family history of ischemic heart disease and other diseases of the circulatory system; Z90.710 Acquired absence of both cervix and uterus; Z90.49 Acquired absence of other specified parts of digestive tract

== ENCOUNTER 2022-07-09 15:06 | Inpatient (IN) | payer MEDICARE ==
[~2022-07-09] VITALS: Ht 149.8 cm; Wt 62.1 kg
[~2022-07-09 15:06] MED LIST changes: +MUCUS RELIEF600 MG PO
[2022-07-09 15:09] VITALS: BP 92/56
[2022-07-09 15:10] VITALS: BP 92/65
[2022-07-09 15:35] VITALS: BP 94/59
[2022-07-09 15:56] LABS: BASO % 0.3 % (0.0-1.0); EOS % 0.2 % (1.0-4.0); HEMATOCRIT 42.6 % (37.0-47.0); LYMPH # 1.7 10*3/uL (1.3-4.4); LYMPH % 13.8 % (27.0-41.0); MEAN CELL VOLUME 100.2 fl (81.0-99.0); MEAN CORPUSCULAR HGB 32.5 pg (27.0-31.0); MEAN CORPUSCULAR HGB CONC 32.4 g/dl (33.0-37.0); MEAN PLATELET VOLUME 9.3 fl (9.6-12.3); MONO # 0.7 10*3/uL (0.1-1.0); MONO % 6.2 % (3.0-9.0); NEUT # 9.5 10*3/uL (2.3-7.9); NEUT % 79.2 % (47.0-73.0); PLATELET COUNT AUTOMATED 309 10*3/uL (130-400); RED BLOOD COUNT 4.25 10*6/uL (4.10-5.10); RED CELL DISTRI WIDTH 11.9 % (0-14.5)
[2022-07-09 16:11] LABS: ACT PARTIAL THROMBO TIME 29.1 SECONDS (20.0-32.1)
[2022-07-09 16:15] LABS: CREATININE 1.58 mg/dL (0.55-1.02); POTASSIUM 4.3 mmol/L (3.5-5.1); TOTAL PROTEIN 7.5 gm/dL (6.4-8.2)
[2022-07-09 17:04] VITALS: BP 98/59
[2022-07-09 21:00] VITALS: BP 108/55
[2022-07-10] VITALS: BP 117/77
[2022-07-10 05:34] LABS: BILIRUBIN Negative (Negative); BLOOD Negative (Negative); CLARITY Clear (Clear); COLOR Yellow (Yellow); GLUCOSE Negative (Negative); KETONE Trace (Negative); LEUKO ESTERASE Trace (Negative); NITRITE Negative (Negative); SPECIFIC GRAVITY 1.015 (1.001-1.030); UROBILINOGEN 0.2 E.U./dl (0.0-1.0)
[2022-07-10 07:00] LABS: HEMATOCRIT 34.9 % (37.0-47.0); MEAN CELL VOLUME 100.3 fl (81.0-99.0); MEAN CORPUSCULAR HGB 32.2 pg (27.0-31.0); MEAN CORPUSCULAR HGB CONC 32.1 g/dl (33.0-37.0); MEAN PLATELET VOLUME 9.4 fl (9.6-12.3); PLATELET COUNT AUTOMATED 235 10*3/uL (130-400); RED BLOOD COUNT 3.48 10*6/uL (4.10-5.10); WHITE BLOOD COUNT 8.2 10*3/uL (4.8-10.8)
[2022-07-10 07:13] LABS: ACT PARTIAL THROMBO TIME 29.3 SECONDS (20.0-32.1)
[2022-07-10 07:17] LABS: CREATININE 1.77 mg/dL (0.55-1.02); POTASSIUM 4.9 mmol/L (3.5-5.1); TOTAL PROTEIN 6.7 gm/dL (6.4-8.2)
[2022-07-10 07:30] LABS: MANUAL DIFF REFLEX YES
[2022-07-10 08:00] VITALS: BP 131/75
[2022-07-10 08:08] LABS: TOTAL CELLS COUNTED 100 #CELLS
[2022-07-10 08:09] LABS: OVALOCYTES FEW; PLATELET SUFFICIENCY NORMAL (NORMAL); POLYCHROMASIA SLIGHT
[2022-07-10 12:00] VITALS: BP 149/89
[2022-07-10 16:00] VITALS: BP 130/83; BP 145/76
[2022-07-10 20:00] VITALS: BP 150/84
[2022-07-11] VITALS: BP 141/89
[2022-07-11 06:36] LABS: CREATININE 1.22 mg/dL (0.55-1.02); POTASSIUM 5.1 mmol/L (3.5-5.1)
[2022-07-11 07:13] LABS: BASO % 0.2 % (0.0-1.0); HEMATOCRIT 31.9 % (37.0-47.0); LYMPH # 0.7 10*3/uL (1.3-4.4); MEAN CELL VOLUME 98.8 fl (81.0-99.0); MEAN CORPUSCULAR HGB 32.2 pg (27.0-31.0); MEAN CORPUSCULAR HGB CONC 32.6 g/dl (33.0-37.0); MEAN PLATELET VOLUME 9.3 fl (9.6-12.3); MONO # 0.8 10*3/uL (0.1-1.0); MONO % 8.3 % (3.0-9.0); NEUT # 8.3 10*3/uL (2.3-7.9); NEUT % 84.1 % (47.0-73.0); PLATELET COUNT AUTOMATED 233 10*3/uL (130-400); RED BLOOD COUNT 3.23 10*6/uL (4.10-5.10); WHITE BLOOD COUNT 9.9 10*3/uL (4.8-10.8)
[2022-07-11 08:00] VITALS: BP 125/74
[2022-07-11 12:00] VITALS: BP 134/57
[2022-07-11 16:00] VITALS: BP 147/84
[2022-07-11] MEDS ORDERED: CLARITIN-D 121 EACH PO (17:58)
[2022-07-11 20:00] VITALS: BP 133/75
[2022-07-12] VITALS: BP 145/78
[2022-07-12 06:28] LABS: POTASSIUM 4.2 mmol/L (3.5-5.1)
[2022-07-12 06:30] LABS: CREATININE 1.16 mg/dL (0.55-1.02)
[2022-07-12 07:04] LABS: BASO % 0.2 % (0.0-1.0); HEMATOCRIT 33.9 % (37.0-47.0); LYMPH # 0.8 10*3/uL (1.3-4.4); LYMPH % 7.8 % (27.0-41.0); MEAN CORPUSCULAR HGB CONC 31.3 g/dl (33.0-37.0); MEAN PLATELET VOLUME 9.4 fl (9.6-12.3); MONO # 0.6 10*3/uL (0.1-1.0); MONO % 6.3 % (3.0-9.0); NEUT # 8.6 10*3/uL (2.3-7.9); NEUT % 85.1 % (47.0-73.0); PLATELET COUNT AUTOMATED 254 10*3/uL (130-400); RED BLOOD COUNT 3.31 10*6/uL (4.10-5.10); RED CELL DISTRI WIDTH 12.3 % (0-14.5); WHITE BLOOD COUNT 10.1 10*3/uL (4.8-10.8)
[2022-07-12 07:08] LABS: MEAN CELL VOLUME 102.4 fl (81.0-99.0)
[2022-07-12 08:00] VITALS: BP 152/86
[2022-07-12 12:00] VITALS: BP 144/79
[2022-07-12 16:00] VITALS: BP 134/78
[2022-07-12 20:00] VITALS: BP 176/98
[2022-07-12 21:16] VITALS: BP 152/83
[2022-07-13] VITALS: BP 140/87
[2022-07-13 06:43] LABS: BASO % 0.1 % (0.0-1.0); HEMATOCRIT 33.7 % (37.0-47.0); LYMPH # 0.6 10*3/uL (1.3-4.4); LYMPH % 8.8 % (27.0-41.0); MEAN CELL VOLUME 101.5 fl (81.0-99.0); MEAN CORPUSCULAR HGB 31.6 pg (27.0-31.0); MEAN CORPUSCULAR HGB CONC 31.2 g/dl (33.0-37.0); MEAN PLATELET VOLUME 9.5 fl (9.6-12.3); MONO # 0.6 10*3/uL (0.1-1.0); MONO % 7.6 % (3.0-9.0); NEUT # 5.9 10*3/uL (2.3-7.9); NEUT % 82.7 % (47.0-73.0); PLATELET COUNT AUTOMATED 185 10*3/uL (130-400); RED BLOOD COUNT 3.32 10*6/uL (4.10-5.10); RED CELL DISTRI WIDTH 12.2 % (0-14.5); WHITE BLOOD COUNT 7.2 10*3/uL (4.8-10.8)
[2022-07-13 06:45] LABS: BUN 24 mg/dl (7-24); CHLORIDE 107 mmol/L (98-107); CREATININE 1.01 mg/dL (0.55-1.02); POTASSIUM 4.4 mmol/L (3.5-5.1); SODIUM 140 mmol/L (136-145)
[2022-07-13 08:00] VITALS: BP 134/80
[2022-07-13] MEDS ORDERED: DOXYCYCLINE HY100 M3 PO (11:47)
[2022-07-13] MEDS ORDERED: PREDNISONE10 MG PO (11:47)
[2022-07-13 12:00] VITALS: BP 129/84
== END 2022-07-13 13:43 | disposition home health service (06) | DRG 871 ==
LOC: ED 15:06 → EDHOLD 18:45 → 4E 18:45
PROVIDERS: Emergency Medicine; Internal Medicine; Student in an Organized Health Care Education/Training Program; ADMIT Internal Medicine; ATTEND Internal Medicine
DX: A41.9 Sepsis, unspecified organism (principal); J18.9 Pneumonia, unspecified organism; J96.21 Acute and chronic respiratory failure with hypoxia; N17.0 Acute kidney failure with tubular necrosis; J44.1 Chronic obstructive pulmonary disease with (acute) exacerbation; E87.1 Hypo-osmolality and hyponatremia; J44.0 Chronic obstructive pulmonary disease with (acute) lower respiratory infection; Z90.2 Acquired absence of lung [part of]; R65.20 Severe sepsis without septic shock; E86.0 Dehydration; I95.9 Hypotension, unspecified; Z66 Do not resuscitate; J45.909 Unspecified asthma, uncomplicated; K21.9 Gastro-esophageal reflux disease without esophagitis; I25.10 Atherosclerotic heart disease of native coronary artery without angina pectoris; R73.9 Hyperglycemia, unspecified; D75.89 Other specified diseases of blood and blood-forming organs; I35.0 Nonrheumatic aortic (valve) stenosis; Z20.822 Contact with and (suspected) exposure to COVID-19; Z88.6 Allergy status to analgesic agent; Z88.1 Allergy status to other antibiotic agents; Z88.8 Allergy status to other drugs, medicaments and biological substances; Z90.49 Acquired absence of other specified parts of digestive tract; Z90.710 Acquired absence of both cervix and uterus; Z82.49 Family history of ischemic heart disease and other diseases of the circulatory system; Z51.5 Encounter for palliative care; Z85.118 Personal history of other malignant neoplasm of bronchus and lung

== ENCOUNTER → 2022-07-25 | Outpatient (CLI) | payer MEDICARE ==
[~2022-07-25] MED LIST changes: +CLARITIN-D 121 EACH PO; +DOXYCYCLINE HY100 M3 PO
== END | disposition home or self-care (01) ==
LOC: RESCLI 03:17
PROVIDERS: ATTEND Internal Medicine
DX: I71.40 Abdominal aortic aneurysm, without rupture, unspecified (principal); D64.9 Anemia, unspecified; Z13.9 Encounter for screening, unspecified; J44.9 Chronic obstructive pulmonary disease, unspecified; J45.909 Unspecified asthma, uncomplicated; C34.90 Malignant neoplasm of unspecified part of unspecified bronchus or lung; I10 Essential (primary) hypertension; M19.90 Unspecified osteoarthritis, unspecified site; Z90.49 Acquired absence of other specified parts of digestive tract; Z90.710 Acquired absence of both cervix and uterus; Z98.890 Other specified postprocedural states; Z82.49 Family history of ischemic heart disease and other diseases of the circulatory system; Z87.891 Personal history of nicotine dependence; Z88.8 Allergy status to other drugs, medicaments and biological substances; Z91.048 Other nonmedicinal substance allergy status; Z88.1 Allergy status to other antibiotic agents; Z88.5 Allergy status to narcotic agent; Z79.82 Long term (current) use of aspirin; Z79.899 Other long term (current) drug therapy

== ENCOUNTER 2022-10-20 14:27 | Emergency (ER) | payer MEDICARE ==
[~2022-10-20] VITALS: Ht 144.7 cm; Wt 62.1 kg
[2022-10-20 14:36] VITALS: BP 117/74
[2022-10-20 17:03] LABS: BASO % 0.2 % (0.0-1.0); HEMATOCRIT 34.9 % (37.0-47.0); LYMPH # 1.3 10*3/uL (1.3-4.4); LYMPH % 23.2 % (27.0-41.0); MEAN CELL VOLUME 102.3 fl (81.0-99.0); MEAN CORPUSCULAR HGB 31.7 pg (27.0-31.0); MEAN CORPUSCULAR HGB CONC 30.9 g/dl (33.0-37.0); MEAN PLATELET VOLUME 9.8 fl (9.6-12.3); MONO # 0.4 10*3/uL (0.1-1.0); NEUT # 3.7 10*3/uL (2.3-7.9); NEUT % 68.4 % (47.0-73.0); PLATELET COUNT AUTOMATED 204 10*3/uL (130-400); RED BLOOD COUNT 3.41 10*6/uL (4.10-5.10); RED CELL DISTRI WIDTH 13.1 % (0-14.5); WHITE BLOOD COUNT 5.5 10*3/uL (4.8-10.8)
[2022-10-20 17:56] LABS: ALKALINE PHOSPHATASE 54 U/L (46-116); BUN 17 mg/dl (9-23); CHLORIDE 104 mmol/L (98-107); LIPASE 42 U/L (12-53); SGPT/ALT 12 U/L (10-49); TOTAL PROTEIN 5.9 gm/dL (6.0-8.0)
[2022-10-20] MEDS ORDERED: TRAMADOL HCL50 MG PO (18:09)
== END 2022-10-20 18:18 | disposition home or self-care (01) ==
LOC: ED 14:27
PROVIDERS: Family Medicine
DX: R10.9 Unspecified abdominal pain (principal); Z88.1 Allergy status to other antibiotic agents; Z88.8 Allergy status to other drugs, medicaments and biological substances; Z79.899 Other long term (current) drug therapy; Z90.49 Acquired absence of other specified parts of digestive tract; Z90.710 Acquired absence of both cervix and uterus; Z98.890 Other specified postprocedural states

== ENCOUNTER → 2023-01-03 | Outpatient (CLI) | payer MEDICARE ==
[~2023-01-03] MED LIST changes: +BUSPIRONE HCL7.5 MG PO; +TRAMADOL HCL50 MG PO; +ZANTAC-360 (FAM10 MG PO
== END | disposition home or self-care (01) ==
LOC: RESCLI 02:33
PROVIDERS: ATTEND Internal Medicine
DX: J44.1 Chronic obstructive pulmonary disease with (acute) exacerbation (principal); K21.9 Gastro-esophageal reflux disease without esophagitis; Z99.81 Dependence on supplemental oxygen; Z82.49 Family history of ischemic heart disease and other diseases of the circulatory system; Z90.49 Acquired absence of other specified parts of digestive tract; Z98.890 Other specified postprocedural states; Z90.710 Acquired absence of both cervix and uterus; Z87.891 Personal history of nicotine dependence; Z72.89 Other problems related to lifestyle; Z91.048 Other nonmedicinal substance allergy status; Z88.8 Allergy status to other drugs, medicaments and biological substances; Z79.82 Long term (current) use of aspirin; Z79.899 Other long term (current) drug therapy